=== PATIENT | female | born 1955 | race Caucasian/White ===

== ENCOUNTER 2017-05-08 12:14 | Emergency (ER) | payer BC ==
--- NOTE | ~2017-05-08 | ER ---
PATIENT'S NAME: SHALINI DEVINE [facility] AGE: 61 Y [address] ROOM: [place] [address] LOCATION: [facility] ADMIT DATE: 05/08/2017 ER/Outpatient Report DISCHARGE DATE: 05/08/2017 FAMILY PHYSICIAN: Physician, Unknown ATTENDING PHYSICIAN: Chanda Somers Time of Arrival: 1214 hours. Time of Evaluation/Seen: 1220 hours. IDENTIFICATION: A 61-year-old female. CHIEF COMPLAINT: Right ankle injury. HISTORY OF PRESENT ILLNESS: The patient was here to see the eclipse from [place], [place] and she jumped out of the pickup trying to avoid a mud puddle, jumped landing on both of her feet, but injuring both ankles. Right ankle pain greater than left ankle pain. No other injuries other than an abrasion on her right elbow. Tetanus is uncertain. PAST MEDICAL HISTORY: ALLERGIES: NO KNOWN DRUG ALLERGIES. CURRENT MEDICATIONS: Denies. MEDICAL PROBLEMS: Denies. PAST SURGICAL HISTORY: Prior Surgeries: Hysterectomy. Last meal was less than 1 hour ago. SOCIAL HISTORY: The patient is . Lives in [place], [place]. Tobacco use, denies. Alcohol use, denies. Drug use, denies. REVIEW OF SYSTEMS: All systems were reviewed and negative other than what is noted in the HPI. PHYSICAL EXAMINATION: VITAL SIGNS: Height 5 feet 7 inches and weight 89.7 kg. Blood pressure PATIENT'S NAME: SHALINI DEVINE [facility] AGE: 61 Y [address] ROOM: [place] [address] LOCATION: [facility] ADMIT DATE: 05/08/2017 ER/Outpatient Report DISCHARGE DATE: 05/08/2017 FAMILY PHYSICIAN: Physician, Unknown ATTENDING PHYSICIAN: Chanda Somers 195/90, pulse 78, respiratory rate is 20, temperature 98.1, and sats 96% on room air. GENERAL: A 61-year-old female, in obvious distress. HEENT: Unremarkable. LUNGS: Clear to auscultation. HEART: Regular rate and rhythm. ABDOMEN: Soft, nondistended, and nontender. SKIN: [place], warm, and dry. MUSCULOSKELETAL: The patient has an abrasion of her right elbow, full range of motion. No bony tenderness. She has an obvious swelling and deformity to her right ankle. Swelling over the lateral malleolus of her left ankle. Left lower extremity, neurovascularly intact. Full range of motion. Minimal tenderness to palpation of the anterior talofibular ligament. No ligamentous laxity. Right lower extremity, neurovascularly intact. Abrasions are present over the medial aspect. The patient has tenderness and swelling over both malleoli. She has no bony tenderness in her knees bilaterally. LABORATORY DATA AND IMAGING STUDIES: X-ray of her right ankle reveals a bimalleolar ankle fracture with associated disruption of the ankle mortise. X-ray of her left ankle, soft-tissue swelling at the lateral malleolus. No fracture. Pending Radiology over-read. IMPRESSION AND PLAN: 1. Bimalleolar fracture of the right ankle. Dr. Parra, orthopedic surgeon, presented and proceeded with closed reduction and splinting. The patient will ice, elevate, [place] for pain, and follow up with an orthopedist when they return to [place]. She will be nonweightbearing on the right lower extremity. Left ankle fracture, CAM boot was placed, weight bear as tolerated. 2. Abrasion, right ankle. 3. Tetanus was boosted. CHANDA SOMERS MD CAR/modl /[id number] d: 05/08/17 2144 t: 05/09/17 0717, OUTPATIENT REPORT
--- NOTE | ~2017-05-08 | CON ---
PATIENT'S NAME: CHLOÉ DEVINE [facility] AGE: 61 Y [address] ROOM: [place] [address] LOCATION: [facility] ADMIT DATE: 05/08/2017 Consultation DISCHARGE DATE: 05/08/2017 FAMILY PHYSICIAN: Physician, Unknown ATTENDING PHYSICIAN: Chanda Chamorro CHIEF COMPLAINT: Right ankle injury. HISTORY OF PRESENT ILLNESS: Chloé is a very pleasant 61-year-old female who sustained a fall, getting out of a pick-up today right before watching the eclipse and sustained a right ankle injury. She also hurt her left ankle some. She was evaluated in the emergency department and found to have a fracture. She had minimal abrasion overlying this. No significant bleeding. No numbness and tingling in her foot. Pain is exacerbated by movement, relieved by rest. No prior history of injuries to this ankle. PAST MEDICAL HISTORY: None. PAST SURGICAL HISTORY: Minor surgery 30 years ago. ALLERGIES: NO KNOWN MEDICAL ALLERGIES. SOCIAL HISTORY: The patient lives in [place], [place]; is here with her and family. CURRENT MEDICATIONS: None. FAMILY HISTORY: Negative for bleeding or anesthesia complications. REVIEW OF SYSTEMS: Negative except as above. PHYSICAL EXAMINATION: GENERAL: She is in no acute distress, resting in bed. NEUROLOGIC: She is awake and alert. CARDIOVASCULAR: Well perfused distal extremities. RESPIRATORY: Nonlabored respirations. PSYCHIATRIC: Appropriate mood and affect. EXTREMITIES: Right lower extremity: She has moderate swelling and is PATIENT'S NAME: CHLOÉ DEVINE [facility] AGE: 61 Y [address] ROOM: [place] [address] LOCATION: [facility] ADMIT DATE: 05/08/2017 Consultation DISCHARGE DATE: 05/08/2017 FAMILY PHYSICIAN: Physician, Unknown ATTENDING PHYSICIAN: Chanda Chamorro severely tender about her ankle. She has minimal abrasions along the medial aspect. There is no open bleeding. No skin injuries on the lateral aspect. Minimal ecchymosis. She has no tenderness about her calcaneus. She has no tenderness proximally at her knee. She has full range of motion of her knee but limited range of motion at her ankle secondary to pain. Her EHL and FHL are intact. Her sensation is intact to light touch over the sural, saphenous, superficial, peroneal, deep peroneal, and tibial nerve distributions. Capillary refill is brisk. She has warm and well perfused toes. Left lower extremity: Her left ankle has tenderness to palpation at the lateral ankle just distal to the fibula. Minimal swelling, no skin changes. Ankle has slightly decreased range of motion secondary to pain. EHL and FHL are intact. Sensation is intact. IMAGING: X-rays of the left ankle are reviewed and normal. X-rays of the right ankle, 3 views are reviewed and shows bimalleolar ankle fracture with lateral and posterolateral displacement of the ankle mortise and talus under the distal tibial plafond. DIAGNOSES: 1. Left ankle sprain. 2. Right bimalleolar ankle fracture displaced. 3. Closed initial encounter. PLAN: I had discussion with her about options. Risks, benefits, and alternatives of a closed reduction with splint application was discussed with the patient. She gave her informed consent to proceed with this. She underwent this. Please see separate procedure note for details. Regarding her ankle, she will require operative fixation of this. Given that she lives in [place], [place] and is planning to drive back later today, we gave her pain medicine prescriptions and recommendation to follow up with an Orthopedic Trauma or Foot and Ankle surgeon in [place] within the next week to undergo surgical intervention for fixation of her ankle fracture. If she were staying around here, then we would get her scheduled to see us in the office within the next week and plan for surgery shortly thereafter. MD MICHAEL MCDONALD/booker PATIENT'S NAME: CHLOÉ DEVINE [facility] AGE: 61 Y [address] ROOM: [place] [address] LOCATION: [facility] ADMIT DATE: 05/08/2017 Consultation DISCHARGE DATE: 05/08/2017 FAMILY PHYSICIAN: Physician, Unknown ATTENDING PHYSICIAN: Chnada Chamorro /[id number] d: 05/08/171947 t: 05/24/17 1449, CONSULTATION REPORT
--- NOTE | ~2017-05-08 | OR ---
PATIENT'S NAME: CHLOÉ DEVINE [facility] AGE: 61 Y [address] ROOM: [place] [address] LOCATION: [facility] ADMIT DATE: 05/08/2017 OR/Procedure Report DISCHARGE DATE: 05/08/2017 FAMILY PHYSICIAN: Physician, Unknown ATTENDING PHYSICIAN: Chanda Chamorro SURGEON: Richard Parra MD ENLISTED ADVISOR: DATE OF PROCEDURE: 05/08/[address] PARRA / 05-11-2017 / REBECCA PREOPERATIVE DIAGNOSIS: Closed right ankle bimalleolar fracture with subluxation. POSTOPERATIVE DIAGNOSIS: Closed right ankle bimalleolar fracture with subluxation. PROCEDURE PERFORMED: Closed reduction of right ankle bimalleolar fracture with subluxation. ANESTHESIA: Sedation with propofol. IMPLANTS: None. ESTIMATED BLOOD LOSS: None. SPECIMENS: None. INDICATIONS: Chloé is a 61-year-old female who sustained a right ankle bimalleolar fracture, dislocation of her ankle. The risks, benefits, and alternatives of closed reduction were discussed with her including the need for further operative intervention in the future. All questions were answered and she gave her informed consent to proceed with intervention. DESCRIPTION OF PROCEDURE: The patient underwent sedation, and the right ankle then underwent a direct manipulation with closed reduction of the ankle. Fluoroscopy confirmed appropriate reduction. A well-padded short-leg splint with the foot dorsiflex was placed and a mold was applied after the splint had set up. Fluoroscopy again confirmed concentric reduction of the ankle mortise. DISPOSITION: The patient will require further surgery and follow up in the next week either here or in [place] for that. DISCHARGE CONDITION: The patient was discharged to home in stable condition. PATIENT'S NAME: CHLOÉ DEVINE [facility] AGE: 61 Y [address] ROOM: [place] [address] LOCATION: [facility] ADMIT DATE: 05/08/2017 OR/Procedure Report DISCHARGE DATE: 05/08/2017 FAMILY PHYSICIAN: Physician, Unknown ATTENDING PHYSICIAN: Chanda Chamorro RICHARD PARRA MD PN/modl /[id number] CORRECTED PER DR. PARRA / 05-11-2017 / KLReginaldo d: 05/08/171953 t: 05/24/17 1452, OPERATIVE SUMMARY
== END 2017-05-08 14:37 | disposition disaster alternative care site (69) ==
LOC: GACC 12:14
PROC: 0QSJXZZ Reposition Right Fibula, External Approach (ICD-10-PCS; principal; 2017-05-08)
DX: S82.841A Displaced bimalleolar fracture of right lower leg, initial encounter for closed fracture (principal); S93.402A Sprain of unspecified ligament of left ankle, initial encounter; S50.311A Abrasion of right elbow, initial encounter; Z90.710 Acquired absence of both cervix and uterus; Z23 Encounter for immunization; X58.XXXA Exposure to other specified factors, initial encounter; Y93.39 Activity, other involving climbing, rappelling and jumping off
CPT/HCPCS: J3010